=== PATIENT | female | born 1965 | race Caucasian/White ===

== ENCOUNTER 2016-10-03 17:31 | Emergency (ER) | payer OTHER ==
--- NOTE | 2016-10-03 18:46 | DIAGNOSTIC IMAGING REPORT ---
PROCEDURE: XR CHEST 2 VIEW INDICATION: CHEST PAIN, initial encounter TECHNIQUE: PA and lateral view. COMPARISON: None. FINDINGS: Lungs are clear. Cardiovascular structures are normal. Bony thorax is unremarkable. No significant interval change. IMPRESSION: 1. Negative chest.
--- NOTE | 2016-10-03 19:08 | ED CLINICAL REPORT ---
Clinical Report - Physicians/Mid Levels [facility] [address] [place] [address] 10/03/2016 17:32 Patient: SAMSON DÍAZ Time Seen: 18:13; initial patient contact, initial documentation, patient care assumed. Arrived- By private vehicle. Historian- patient. HISTORY OF PRESENT ILLNESS Chief Complaint: COUGH and "FLU". This started about 5 days ago and is now gone. The illness is described as moderate. The patient has had a cough, chest discomfort and chest pain. No fever, muscle aches, sore throat or nasal congestion or discharge. No sinus pressure or ear pain. (says cough is gone but chest is still hurting on R side, hurts in her ribs, hurts worse to breathe or cough, thinks her rib is broken, but denies any injury/trauma, states it feels the same as when she had a fx rib, but can't remember which side was fx). Additional history - No known contact with a sick individual. No recent travel. Similar symptoms previously: None. Recent medical care: Not recently seen/assessed. REVIEW OF SYSTEMS No headache, vomiting or diarrhea. All systems otherwise negative, except as recorded above. PAST HISTORY See nurses notes. PROBLEMS: Sprain. Bronchitis. Otitis Media. "heart burn". Anxiety disorder. Depression. Diabetes Mellitus. --18:02 Dionne Good, RRadamesN. ADDITIONAL SURGERIES: Hysterectomy. Tubal Ligation. --18:02 Dionne Good, RMarlene. SOCIAL HISTORY Former smoker. Not exposed to second-hand smoke at home. No alcohol use or drug use. No recent travel. Is a local resident. FAMILY HISTORY Negative. ADDITIONAL NOTES The nursing notes have been reviewed with agreement regarding the chief complaint, HPI, ROS, PMH and patient medications and allergies. PHYSICAL EXAM Vital Signs: 10/03/2016 17:58 BP: 158/69. HR: 85. RR: 18. O2 saturation: 100%. Temp: 98.6 F. Pain level now: 7/10. Have been reviewed as normal and appear to be correct. Appearance: Alert. No acute distress. Eyes: Pupils equal, round and reactive to light. Eyes normal inspection. ENT: Ears normal. Nose normal. Pharynx normal. Uvula midline. Neck: Normal inspection. Neck supple. CVS: Normal heart rate and rhythm. Heart sounds normal. Pulses normal. Respiratory: No respiratory distress. Breath sounds normal. Abdomen: Moderately obese. Back: Normal inspection. Skin: Skin warm and dry. Normal skin color. No rash. Normal skin turgor. Extremities: Extremities exhibit normal ROM. No lower extremity edema. Neuro: Oriented X 3. No motor deficit. No sensory deficit. LABS, X-RAYS, AND EKG Chest X-ray: Normal Chest X-Ray. (IMPRESSION: 1. Negative chest. Electronically Final signed by:Abner Graham MD 10/03/2016 6:46:04 PM). The X-rays were interpreted by the radiologist and contemporaneously by me. PROGRESS AND PROCEDURES Patient counseled in person regarding the patient's stable condition, test results and diagnosis. 18:55. Differential Diagnosis: Other possible considerations: chest wall pain, bronchitis, pneumonia, pneumo, pleurisy. Above considerations are based on history, physical exam and X-Ray data. Differential diagnosis was discussed with patient. Disposition: Discharged home in good and improved condition (19:08). Condition: good and stable. CLINICAL IMPRESSION Chest wall pain Costochondritis INSTRUCTIONS Warnings: GENERAL WARNINGS: Return or contact your physician immediately if your condition worsens or changes unexpectedly, if not improving as expected, or if other problems arise. Specifically return if problem worsens. Prescription Medications: Naproxen 500 mg tablets: take 1 orally every 12 hours as needed for pain. Dispense twenty (20). No refills. Follow-up: Follow up with your doctor in about three days as needed. Call for an appointment. Summary of care provided to patient. Understanding of the discharge instructions verbalized by patient. (Electronically signed by Barb Wallace A.R.N.P. 10/03/2016 19:20)
--- NOTE | 2016-10-03 19:09 | ED ORDER SUMMARY ---
..... Patient: SAMSON DÍAZ OrderSheet [facility] VisitID: [id number] [address] [place] [address] 51y, F Registration Date/Time: 10/03/2016 ORDER SHEET Weight: 104.3 kg (stated) Allergies: Morphine and Related GENERAL ORDERS: Chest 2V Urgent (18:19 10/03/2016 HBivens A.R.N.P.) (Ack 18:30 TBergley) (19:06 RFay) MEDICATION ORDERS: Toradol IM 60 mg (NOW) (18:19 10/03/2016 HBivens A.R.N.P.) (18:23 Vern R.N.) IV FLUIDS: ORDER SHEET NOTES: [Electronically signed by Víctor Ovalles R.N. (19:19 10/03/2016)] [Electronically signed by Barb Wallace.R.N.P. (19:20 10/03/2016)] [Electronically locked/signed by Víctor Ovalles R.N. (19:19 10/03/2016)]
--- NOTE | 2016-10-03 19:09 | ED NURSING NOTES ---
Clinical Report - Nurses [facility] [place] [address] [place] [address] 10/03/2016 17:32 Patient: SAMSON DÍAZ TRIAGE Triage time 17:58. Acuity: LEVEL 5. Chief Complaint: (right ribs area started hurting 5 days ago, had been coughing with flu symptoms). Alert. No acute distress. --18:06 Dionne Good R.N. 17:58 10/03/16. BP: 158/69. HR: 85. RR: 18. O2 saturation: 100%. Temp: 98.6 F. Pain level now: 03/08. --18:06 Dionne Good R.N. Weight: 104.3 kg stated. Height/Length: 63 inches Per Patient. BMI: 40.7. --18:02 Dionne Good R.N. Medications Lisinopril Oral. MetFORMIN HCl Oral. Wellbutrin Oral. --18:00 Dionne Good R.N. Prazosin HCl Oral. --18:00 Dionne Good R.N. SEROquel Oral. --18:01 Dionne Good R.N. Allergies Morphine and Related. --18:00 Dionne Good R.N. History Arrived by private vehicle. Historian: patient. Accompanied by (pt [facility] Primary physician (Dr. Mosquera). This occurred (5 days ago). SOCIAL HX: Former smoker, end date 07/2016. No alcohol use or drug use. FALL RISK ASSESSMENT: Fall risk assessment completed. No fall risk identified. FUNCTIONAL ASSESSMENT: Functional assessment: no impairments noted. --18:06 Dionne Good R.N. PROBLEMS: Sprain. Bronchitis. Otitis Media. "heart burn". Anxiety disorder. Depression. Diabetes Mellitus. --18:02 Dionne Good R.N. ADDITIONAL SURGERIES: Hysterectomy. Tubal Ligation. --18:02 Dionne Good R.N. Interventions ID and allergy band on patient. To room. --18:06 Dionne Good R.N. PHYSICAL ASSESSMENT 18:06 10/03/16. GENERAL / NEURO / PSYCH: Alert. Oriented X 4. SKIN: Skin is warm and dry. --18:06 Dionne Good R.N. NURSING PROGRESS NOTES 18:10/03/16. Patient identifiers checked. Call light placed in reach. Bed placed in lowest position. Patient ready for evaluation- chart flagged. --18:06 Dionne Good R.N. <<STRICKEN ENTRY-- 18:23 10/03/2016 Toradol (Ketorolac Tromethamine) IM 60 mg given. Allergies verified and confirmed 5 rights. --18:23 Dionne Good R.N. --END STRIKE>> Change to Details. --18:24 Dionne Good R.N. 18:23 10/03/2016 Toradol (Ketorolac Tromethamine) IM 60 mg given. Given in the left gluteus geoffrey. Allergies verified and confirmed 5 rights. --18:24 Dionne Good R.N. 19:15. The patient is calm and resting quietly. GENERAL / NEURO / PSYCH: Alert. Oriented X 4. RESPIRATORY: No respiratory distress. --19:18 Víctor Ovalles R.N. DISPOSITION / DISCHARGE Departure time: 19:17. Condition at departure: stable. No learning barriers present. Discharge instructions provided and reviewed with the patient. Reviewed medication(s) side effects, precautions, dosing and course information. Prescription(s) given to the patient. Patient verbalized understanding. Written instructions provided in Azeri. The patient was discharged home and accompanied by family. She left the Emergency Department ambulatory and via private vehicle. Family member driving. FALL RISK ASSESSMENT: Fall risk assessment completed. No fall risk identified. --19:18 Víctor Ovalles R.N. 19:14 10/03/16. BP: 153/83. HR: 74. RR: 17. O2 saturation: 96% on room air. Pain level now: 01/06. --19:18 Quivey, Víctor, R.N. Locked/Released at 10/03/2016 19:19 by Víctor Ovalles R.N.
--- NOTE | 2016-10-03 19:09 | ED NURSING NOTES ---
Clinical Report - Nurses [facility] [place] [address] [place] [address] 10/03/2016 17:32 Patient: SAMSON DÍAZ TRIAGE Triage time 17:58. Acuity: LEVEL 5. Chief Complaint: (right ribs area started hurting 5 days ago, had been coughing with flu symptoms). Alert. No acute distress. --18:06 Dionne Good R.N. 17:58 10/03/16. BP: 158/69. HR: 85. RR: 18. O2 saturation: 100%. Temp: 98.6 F. Pain level now: 03/08. --18:06 Dionne Good R.N. Weight: 104.3 kg stated. Height/Length: 63 inches Per Patient. BMI: 40.7. --18:02 Dionne Good R.N. Medications Lisinopril Oral. MetFORMIN HCl Oral. Wellbutrin Oral. --18:00 Dionne Good R.N. Prazosin HCl Oral. --18:00 Dionne Good R.N. SEROquel Oral. --18:01 Dionne Good R.N. Allergies Morphine and Related. --18:00 Dionne Good R.N. History Arrived by private vehicle. Historian: patient. Accompanied by ([facility] Primary physician (Dr. Mosquera). This occurred (5 days ago). SOCIAL HX: Former smoker, end date 07/2016. No alcohol use or drug use. FALL RISK ASSESSMENT: Fall risk assessment completed. No fall risk identified. FUNCTIONAL ASSESSMENT: Functional assessment: no impairments noted. --18:06 Dionne Good R.N. PROBLEMS: Sprain. Bronchitis. Otitis Media. "heart burn". Anxiety disorder. Depression. Diabetes Mellitus. --18:02 Dionne Good R.N. ADDITIONAL SURGERIES: Hysterectomy. Tubal Ligation. --18:02 Dionne Good R.N. Interventions ID and allergy band on patient. To room. --18:06 Dionne Good R.N. PHYSICAL ASSESSMENT 18:06 10/03/16. GENERAL / NEURO / PSYCH: Alert. Oriented X 4. SKIN: Skin is warm and dry. --18:06 Dionne Good R.N. NURSING PROGRESS NOTES 18:10/03/16. Patient identifiers checked. Call light placed in reach. Bed placed in lowest position. Patient ready for evaluation- chart flagged. --18:06 Dionne Good R.N. <<STRICKEN ENTRY-- 18:23 10/03/2016 Toradol (Ketorolac Tromethamine) IM 60 mg given. Allergies verified and confirmed 5 rights. --18:23 Dionne Good R.N. --END STRIKE>> Change to Details. --18:24 Dionne Good R.N. 18:23 10/03/2016 Toradol (Ketorolac Tromethamine) IM 60 mg given. Given in the left gluteus geoffrey. Allergies verified and confirmed 5 rights. --18:24 Dionne Good R.N. 19:15. The patient is calm and resting quietly. GENERAL / NEURO / PSYCH: Alert. Oriented X 4. RESPIRATORY: No respiratory distress. --19:18 Víctor Ovalles R.N. DISPOSITION / DISCHARGE Departure time: 19:17. Condition at departure: stable. No learning barriers present. Discharge instructions provided and reviewed with the patient. Reviewed medication(s) side effects, precautions, dosing and course information. Prescription(s) given to the patient. Patient verbalized understanding. Written instructions provided in Georgian. The patient was discharged home and accompanied by family. She left the Emergency Department ambulatory and via private vehicle. Family member driving. FALL RISK ASSESSMENT: Fall risk assessment completed. No fall risk identified. --19:18 Víctor Ovalles R.N. 19:14 10/03/16. BP: 153/83. HR: 74. RR: 17. O2 saturation: 96% on room air. Pain level now: 01/06. --19:18 Quivey, Víctor, R.N. Locked/Released at 10/03/2016 19:19 by Víctor Ovalles R.N.
--- NOTE | 2016-10-03 19:09 | ED ORDER SUMMARY ---
..... Patient: SAMSON DÍAZ OrderSheet [facility] VisitID: [id number] [address] [place] [address] 51y, F Registration Date/Time: 10/03/2016 ORDER SHEET Weight: 104.3 kg (stated) Allergies: Morphine and Related GENERAL ORDERS: Chest 2V Urgent (18:19 10/03/2016 HBivens A.R.N.P.) (Ack 18:30 TBergley) (19:06 RFay) MEDICATION ORDERS: Toradol IM 60 mg (NOW) (18:19 10/03/2016 HBivens A.R.N.P.) (18:23 Vern R.N.) IV FLUIDS: ORDER SHEET NOTES: [Electronically signed by Víctor Ovalles R.N. (19:19 10/03/2016)] [Electronically signed by Barb Wallace.R.N.P. (19:20 10/03/2016)] [Electronically locked/signed by Víctor Ovalles R.N. (19:19 10/03/2016)]
--- NOTE | 2016-10-03 19:20 | ED MAR SUMMARY ---
..... Medication Administration Record [facility] [address] [place] [address] Patient: SAMSON DÍAZ Visit ID: [id number] 51y, F Weight: 104.3 kg Height/Length: 63 in BMI: 40.7 ALLERGIES: Morphine and Related Given 18:23 10/03/2016 Dionne Good RRadamesNRadames Medication Administered: TORADOL [IM] (KETOROLAC TROMETHAMINE), Dose: 60 mg IM. Medication Ordered: Toradol IM 60 mg (NOW).
--- NOTE | 2016-10-03 19:20 | ED DISCHARGE INSTRUCTIONS ---
Patient: SAMSON DÍAZ General Instructions [facility] VisitID: [id number] [place] [address] 51y, [place] Registration Date/Time: 10/03/2016 Chest wall pain Costochondritis INSTRUCTIONS Warnings: GENERAL WARNINGS: Return or contact your physician immediately if your condition worsens or changes unexpectedly, if not improving as expected, or if other problems arise. Specifically return if problem worsens. Prescription Medications: Naproxen 500 mg tablets: take 1 orally every 12 hours as needed for pain. Dispense twenty (20). No refills. Follow-up: Follow up with your doctor in about three days as needed. Call for an appointment. Summary of care provided to patient. Understanding of the discharge instructions verbalized by patient. ADDITIONAL INFORMATION Chest Wall Pain: Costochondritis The chest pain that you have had today is caused by Costochondritis. This condition is due to an inflammation of the cartilage joining the ribs to the breastbone. It is not caused by heart or lung problems. Although the exact cause for costochondritis is not known, it often occurs during times of emotional stress. It can be painful, but it is not dangerous. It usually disappears within one to two weeks, but may recur. Rarely, a more serious condition may cause symptoms similar to costochondritis; therefore, watch for the warning signs listed below. Home Care: If you feel that emotional stress is a cause of your condition, try to identify sources of that stress. It may not be obvious! Learn ways to deal with the stress in your life such as regular exercise, muscle relaxation, meditation, or simply taking time out for yourself. For more information about this, consult your doctor or go to a local bookstore and review books and tapes available on the subject of stress reduction. You may use acetaminophen (Tylenol) or ibuprofen (Motrin, Advil) to control pain, unless another pain medicine was prescribed. [ NOTE: If you have liver disease or ever had a stomach ulcer, talk with your doctor before using these medicines.] The use of heat (hot wet compress or heating pad) with or without local analgesic creams (Deep Heat Rub, Lavelle Burns) will be helpful to reduce pain. Follow Up with your doctor as directed or sooner if you do not start to improve within the next two days. Get Prompt Medical Attention if any of the following occur: A change in the type of pain: if it feels different, becomes more severe, lasts longer, or spreads into your shoulder, arm, neck, jaw or back Shortness of breath or increased pain with breathing Weakness, dizziness, or fainting Cough with dark colored sputum (phlegm) or blood Abdominal pain Dark red or black stools Fever of 100.4F (38C) or higher, or as directed by your healthcare provider Chest Wall Pain: Costochondritis The chest pain that you have had today is caused by Costochondritis. This condition is due to an inflammation of the cartilage joining the ribs to the breastbone. It is not caused by heart or lung problems. Although the exact cause for costochondritis is not known, it often occurs during times of emotional stress. It can be painful, but it is not dangerous. It usually disappears within one to two weeks, but may recur. Rarely, a more serious condition may cause symptoms similar to costochondritis; therefore, watch for the warning signs listed below. Home Care: If you feel that emotional stress is a cause of your condition, try to identify sources of that stress. It may not be obvious! Learn ways to deal with the stress in your life such as regular exercise, muscle relaxation, meditation, or simply taking time out for yourself. For more information about this, consult your doctor or go to a local bookstore and review books and tapes available on the subject of stress reduction. You may use acetaminophen (Tylenol) or ibuprofen (Motrin, Advil) to control pain, unless another pain medicine was prescribed. [ NOTE: If you have liver disease or ever had a stomach ulcer, talk with your doctor before using these medicines.] The use of heat (hot wet compress or heating pad) with or without local analgesic creams (Deep Heat Rub, Lavelle Burns) will be helpful to reduce pain. Follow Up with your doctor as directed or sooner if you do not start to improve within the next two days. Get Prompt Medical Attention if any of the following occur: A change in the type of pain: if it feels different, becomes more severe, lasts longer, or spreads into your shoulder, arm, neck, jaw or back Shortness of breath or increased pain with breathing Weakness, dizziness, or fainting Cough with dark colored sputum (phlegm) or blood Abdominal pain Dark red or black stools Fever of 100.4F (38C) or higher, or as directed by your healthcare provider Naproxen Sodium Oral tablet What is this medicine? NAPROXEN (na PROX en) is a non-steroidal anti-inflammatory drug (NSAID). It is used to reduce swelling and to treat pain. This medicine may be used for dental pain, headache, or painful monthly periods. It is also used for painful joint and muscular problems such as arthritis, tendinitis, bursitis, and gout. How should I use this medicine? Take this medicine by mouth with a glass of water. Follow the directions on the prescription label. Take it with food if your stomach gets upset. Try to not lie down for at least 10 minutes after you take it. Take your medicine at regular intervals. Do not take your medicine more often than directed. Long-term, continuous use may increase the risk of heart attack or stroke. A special MedGuide will be given to you by the pharmacist with each prescription and refill. Be sure to read this information carefully each time. Talk to your group reservations coordinator regarding the use of this medicine in children. Special care may be needed. What side effects may I notice from receiving this medicine? Side effects that you should report to your doctor or health personal care service provider as soon as possible: black or bloody stools, blood in the urine or vomit blurred vision chest pain difficulty breathing or wheezing nausea or vomiting severe stomach pain skin rash, skin redness, blistering or peeling skin, hives, or itching slurred speech or weakness on one side of the body swelling of eyelids, throat, lips unexplained weight gain or swelling unusually weak or tired yellowing of eyes or skin Side effects that usually do not require medical attention (report to your doctor or health personal care service provider if they continue or are bothersome): constipation headache heartburn What may interact with this medicine? alcohol aspirin cidofovir diuretics lithium methotrexate other drugs for inflammation like ketorolac or prednisone pemetrexed probenecid warfarin What if I miss a dose? If you miss a dose, take it as soon as you can. If it is almost time for your next dose, take only that dose. Do not take double or extra doses. Where should I keep my medicine? Keep out of the reach of children. Store at room temperature between 15 and 30 degrees C (59 and 86 degrees F). Keep container tightly closed. Throw away any unused medicine after the expiration date. What should I tell my health care provider before I take this medicine? They need to know if you have any of these conditions: asthma cigarette smoker drink more than 3 alcohol containing drinks a day heart disease or circulation problems such as heart failure or leg edema (fluid retention) high blood pressure kidney disease liver disease stomach bleeding or ulcers an unusual or allergic reaction to naproxen, aspirin, other NSAIDs, other medicines, foods, dyes, or preservatives or trying to get breast-feeding What should I watch for while using this medicine? Tell your doctor or health personal care service provider if your pain does not get better. Talk to your doctor before taking another medicine for pain. Do not treat yourself. This medicine does not prevent heart attack or stroke. In fact, this medicine may increase the chance of a heart attack or stroke. The chance may increase with longer use of this medicine and in people who have heart disease. If you take aspirin to prevent heart attack or stroke, talk with your doctor or health personal care service provider. Do not take other medicines that contain aspirin, ibuprofen, or naproxen with this medicine. Side effects such as stomach upset, nausea, or ulcers may be more likely to occur. Many medicines available without a prescription should not be taken with this medicine. This medicine can cause ulcers and bleeding in the stomach and intestines at any time during treatment. Do not smoke cigarettes or drink alcohol. These increase irritation to your stomach and can make it more susceptible to damage from this medicine. Ulcers and bleeding can happen without warning symptoms and can cause . You may get drowsy or dizzy. Do not drive, use machinery, or do anything that needs mental alertness until you know how this medicine affects you. Do not stand or sit up quickly, especially if you are an older patient. This reduces the risk of dizzy or fainting spells. This medicine can cause you to bleed more easily. Try to avoid damage to your teeth and gums when you brush or floss your teeth. You have been given the following additional information: Chest Wall Pain, Costochondritis Chest Wall Pain, Costochondritis Naproxen Sodium Oral tablet (Electronically signed by Barb Wallace A.R.N.P. 10/03/2016 19:20)
--- NOTE | 2016-10-03 19:20 | ED DISCHARGE INSTRUCTIONS ---
Patient: SAMSON DÍAZ General Instructions [facility] VisitID: [id number] [place] [address] 51y, F Registration Date/Time: 10/03/2016 Chest wall pain Costochondritis INSTRUCTIONS Warnings: GENERAL WARNINGS: Return or contact your physician immediately if your condition worsens or changes unexpectedly, if not improving as expected, or if other problems arise. Specifically return if problem worsens. Prescription Medications: Naproxen 500 mg tablets: take 1 orally every 12 hours as needed for pain. Dispense twenty (20). No refills. Follow-up: Follow up with your doctor in about three days as needed. Call for an appointment. Summary of care provided to patient. Understanding of the discharge instructions verbalized by patient. ADDITIONAL INFORMATION Chest Wall Pain: Costochondritis The chest pain that you have had today is caused by Costochondritis. This condition is due to an inflammation of the cartilage joining the ribs to the breastbone. It is not caused by heart or lung problems. Although the exact cause for costochondritis is not known, it often occurs during times of emotional stress. It can be painful, but it is not dangerous. It usually disappears within one to two weeks, but may recur. Rarely, a more serious condition may cause symptoms similar to costochondritis; therefore, watch for the warning signs listed below. Home Care: If you feel that emotional stress is a cause of your condition, try to identify sources of that stress. It may not be obvious! Learn ways to deal with the stress in your life such as regular exercise, muscle relaxation, meditation, or simply taking time out for yourself. For more information about this, consult your doctor or go to a local bookstore and review books and tapes available on the subject of stress reduction. You may use acetaminophen (Tylenol) or ibuprofen (Motrin, Advil) to control pain, unless another pain medicine was prescribed. [ NOTE: If you have liver disease or ever had a stomach ulcer, talk with your doctor before using these medicines.] The use of heat (hot wet compress or heating pad) with or without local analgesic creams (Deep Heat Rub, Lavelle Burns) will be helpful to reduce pain. Follow Up with your doctor as directed or sooner if you do not start to improve within the next two days. Get Prompt Medical Attention if any of the following occur: A change in the type of pain: if it feels different, becomes more severe, lasts longer, or spreads into your shoulder, arm, neck, jaw or back Shortness of breath or increased pain with breathing Weakness, dizziness, or fainting Cough with dark colored sputum (phlegm) or blood Abdominal pain Dark red or black stools Fever of 100.4F (38C) or higher, or as directed by your healthcare provider Chest Wall Pain: Costochondritis The chest pain that you have had today is caused by Costochondritis. This condition is due to an inflammation of the cartilage joining the ribs to the breastbone. It is not caused by heart or lung problems. Although the exact cause for costochondritis is not known, it often occurs during times of emotional stress. It can be painful, but it is not dangerous. It usually disappears within one to two weeks, but may recur. Rarely, a more serious condition may cause symptoms similar to costochondritis; therefore, watch for the warning signs listed below. Home Care: If you feel that emotional stress is a cause of your condition, try to identify sources of that stress. It may not be obvious! Learn ways to deal with the stress in your life such as regular exercise, muscle relaxation, meditation, or simply taking time out for yourself. For more information about this, consult your doctor or go to a local bookstore and review books and tapes available on the subject of stress reduction. You may use acetaminophen (Tylenol) or ibuprofen (Motrin, Advil) to control pain, unless another pain medicine was prescribed. [ NOTE: If you have liver disease or ever had a stomach ulcer, talk with your doctor before using these medicines.] The use of heat (hot wet compress or heating pad) with or without local analgesic creams (Deep Heat Rub, Lavelle Burns) will be helpful to reduce pain. Follow Up with your doctor as directed or sooner if you do not start to improve within the next two days. Get Prompt Medical Attention if any of the following occur: A change in the type of pain: if it feels different, becomes more severe, lasts longer, or spreads into your shoulder, arm, neck, jaw or back Shortness of breath or increased pain with breathing Weakness, dizziness, or fainting Cough with dark colored sputum (phlegm) or blood Abdominal pain Dark red or black stools Fever of 100.4F (38C) or higher, or as directed by your healthcare provider Naproxen Sodium Oral tablet What is this medicine? NAPROXEN (na PROX en) is a non-steroidal anti-inflammatory drug (NSAID). It is used to reduce swelling and to treat pain. This medicine may be used for dental pain, headache, or painful monthly periods. It is also used for painful joint and muscular problems such as arthritis, tendinitis, bursitis, and gout. How should I use this medicine? Take this medicine by mouth with a glass of water. Follow the directions on the prescription label. Take it with food if your stomach gets upset. Try to not lie down for at least 10 minutes after you take it. Take your medicine at regular intervals. Do not take your medicine more often than directed. Long-term, continuous use may increase the risk of heart attack or stroke. A special MedGuide will be given to you by the pharmacist with each prescription and refill. Be sure to read this information carefully each time. Talk to your call center analyst regarding the use of this medicine in children. Special care may be needed. What side effects may I notice from receiving this medicine? Side effects that you should report to your doctor or health memory care program director as soon as possible: black or bloody stools, blood in the urine or vomit blurred vision chest pain difficulty breathing or wheezing nausea or vomiting severe stomach pain skin rash, skin redness, blistering or peeling skin, hives, or itching slurred speech or weakness on one side of the body swelling of eyelids, throat, lips unexplained weight gain or swelling unusually weak or tired yellowing of eyes or skin Side effects that usually do not require medical attention (report to your doctor or health memory care program director if they continue or are bothersome): constipation headache heartburn What may interact with this medicine? alcohol aspirin cidofovir diuretics lithium methotrexate other drugs for inflammation like ketorolac or prednisone pemetrexed probenecid warfarin What if I miss a dose? If you miss a dose, take it as soon as you can. If it is almost time for your next dose, take only that dose. Do not take double or extra doses. Where should I keep my medicine? Keep out of the reach of children. Store at room temperature between 15 and 30 degrees C (59 and 86 degrees F). Keep container tightly closed. Throw away any unused medicine after the expiration date. What should I tell my health care provider before I take this medicine? They need to know if you have any of these conditions: asthma cigarette smoker drink more than 3 alcohol containing drinks a day heart disease or circulation problems such as heart failure or leg edema (fluid retention) high blood pressure kidney disease liver disease stomach bleeding or ulcers an unusual or allergic reaction to naproxen, aspirin, other NSAIDs, other medicines, foods, dyes, or preservatives or trying to get breast-feeding What should I watch for while using this medicine? Tell your doctor or health memory care program director if your pain does not get better. Talk to your doctor before taking another medicine for pain. Do not treat yourself. This medicine does not prevent heart attack or stroke. In fact, this medicine may increase the chance of a heart attack or stroke. The chance may increase with longer use of this medicine and in people who have heart disease. If you take aspirin to prevent heart attack or stroke, talk with your doctor or health memory care program director. Do not take other medicines that contain aspirin, ibuprofen, or naproxen with this medicine. Side effects such as stomach upset, nausea, or ulcers may be more likely to occur. Many medicines available without a prescription should not be taken with this medicine. This medicine can cause ulcers and bleeding in the stomach and intestines at any time during treatment. Do not smoke cigarettes or drink alcohol. These increase irritation to your stomach and can make it more susceptible to damage from this medicine. Ulcers and bleeding can happen without warning symptoms and can cause . You may get drowsy or dizzy. Do not drive, use machinery, or do anything that needs mental alertness until you know how this medicine affects you. Do not stand or sit up quickly, especially if you are an older patient. This reduces the risk of dizzy or fainting spells. This medicine can cause you to bleed more easily. Try to avoid damage to your teeth and gums when you brush or floss your teeth. You have been given the following additional information: Chest Wall Pain, Costochondritis Chest Wall Pain, Costochondritis Naproxen Sodium Oral tablet (Electronically signed by Barb Wallace A.R.N.P. 10/03/2016 19:20)
--- NOTE | 2016-10-03 19:20 | ED MED RECONCILIATION SUMMARY ---
Patient: SAMSON DÍAZ Medication Reconciliation Report [facility] VisitID: [id number] [address] [place] [address] 51y, F Registration Date/Time: 10/03/2016 Weight: 104.3 kg Height/Length: 63 in. BMI: 40.7 ALLERGIES: Morphine and Related The patient's Home Medications are listed below: THE FOLLOWING MEDICATIONS NEED TO BE RECONCILED: Lisinopril Oral MetFORMIN HCl Oral Prazosin HCl Oral SEROquel Oral Wellbutrin Oral The source(s) of the original Home Medication information: Not obtained. The following Medications were given to the patient in the Emergency Department: Toradol [IM] IM 60 mg, administered: 10/03/2016 6:23:00 PM The following Medications were prescribed to the patient: Naproxen 500 mg tablets: take 1 orally every 12 hours as needed for pain. Dispense twenty (20). No refills. -- Barb Wallace A.R.NRadamesP.
--- NOTE | 2016-10-03 19:20 | ED MED RECONCILIATION SUMMARY ---
Patient: SAMSON DÍAZ Medication Reconciliation Report [facility] VisitID: [id number] [address] [place] [address] 51y, F Registration Date/Time: 10/03/2016 Weight: 104.3 kg Height/Length: 63 in. BMI: 40.7 ALLERGIES: Morphine and Related The patient's Home Medications are listed below: THE FOLLOWING MEDICATIONS NEED TO BE RECONCILED: Lisinopril Oral MetFORMIN HCl Oral Prazosin HCl Oral SEROquel Oral Wellbutrin Oral The source(s) of the original Home Medication information: Not obtained. The following Medications were given to the patient in the Emergency Department: Toradol [IM] IM 60 mg, administered: 10/03/2016 6:23:00 PM The following Medications were prescribed to the patient: Naproxen 500 mg tablets: take 1 orally every 12 hours as needed for pain. Dispense twenty (20). No refills. -- Barb Wallace A.R.NRadamesP.
--- NOTE | 2016-10-03 19:20 | ED MAR SUMMARY ---
..... Medication Administration Record [facility] [address] [place] [address] Patient: SAMSON DÍAZ Visit ID: [id number] 51y, F Weight: 104.3 kg Height/Length: 63 in BMI: 40.7 ALLERGIES: Morphine and Related Given 18:23 10/03/2016 Dionne Good RRadamesNRadames Medication Administered: TORADOL [IM] (KETOROLAC TROMETHAMINE), Dose: 60 mg IM. Medication Ordered: Toradol IM 60 mg (NOW).
== END 2016-10-03 19:17 | disposition home or self-care (01) ==
LOC: ED SRH 17:31
DX: R07.89 Other chest pain (principal); M94.0 Chondrocostal junction syndrome [Tietze]; E11.9 Type 2 diabetes mellitus without complications; I10 Essential (primary) hypertension; Z79.84 Long term (current) use of oral hypoglycemic drugs; Z79.899 Other long term (current) drug therapy; Z87.891 Personal history of nicotine dependence

== ENCOUNTER 2016-10-31 18:47 | Emergency (ER) | payer OTHER ==
--- NOTE | 2016-10-31 20:06 | DIAGNOSTIC IMAGING REPORT ---
PROCEDURE: XR CHEST 1 VIEW INDICATION: CHEST PAIN, initial encounter TECHNIQUE: Portable AP view 07:25 p.m. COMPARISON: Chest x-ray 10/03/2016 FINDINGS: Lungs are clear. Heart and mediastinum are normal. Thorax is normal. No significant interval change. IMPRESSION: 1. Negative chest.
--- NOTE | 2016-10-31 22:23 | ED ORDER SUMMARY ---
..... Patient: SAMSON DÍAZ OrderSheet [facility] VisitID: [id number] [place] [address] 51y, F Registration Date/Time: 10/31/2016 ORDER SHEET Weight: 104.3 kg Allergies: Morphine and Related GENERAL ORDERS: EKG - ER Stat (19:10/31/2016 DBeyer R.N. per protocol) (19:06 TBergley) Chest 1V Urgent (19:10/31/2016 Edith ROBBINS) (Ack 19:29 CHagerty ER Business Reporter) (20:29 CHagerty ER Business Reporter) Service Station Equipment Mechanic (Continuous) (:10/31/2016 Edith ROBBINS) (Ack 19:29 CHagerty ER Business Reporter) (2:26 JQuivey R.N.) Cardiac Panel Stat (:10/31/2016 Edith ROBBINS) (Ack 19:29 CHagerty ER Business Reporter) (2:28 JQuivey R.N.) BNP Urgent (19:10/31/2016 Edith ROBBINS) (Ack 19:29 CHagerty ER Business Reporter) (2:28 JQuivey R.N.) D-Dimer Urgent (19:10/31/2016 Edith ROBBINS) (Ack 19:29 CHagerty ER Business Reporter) (2:28 JQuivey R.N.) Oxygen (2 L/min) (NC) (19:10/31/2016 Edith ROBBINS) (Ack 19:29 CHagerty ER Business Reporter) (2:28 JQuivey R.N.) Pulse oximeter (19:10/31/2016 Edith ROBBINS) (Ack 19:29 MonkeyFinderty ER Business Reporter) (2:27 JQuivey R.N.) EKG - ER Stat (:10/31/2016 Edith ROBBINS) (Cancelled: Duplicate Order19:29 CHagerty ER Business Reporter) MEDICATION ORDERS: Aspirin PO 325 mg (NOW) (19:10/31/2016 Edith ROBBINS) (20:07 DBeyer R.N.) IV FLUIDS: IV Saline Lock (19:10/31/2016 Edith ROBBINS) (20:02 DBeyer R.N.) Dilaudid IV 1 mg (NOW) (19:19 10/31/2016 Edith ROBBINS) (20:07 DBeyer R.N.) Dilaudid IV 1 mg (HIGH ALERT MEDICATION, NOW) (22:19 10/31/2016 Edith ROBBINS) (22:39 DBeyer R.N.) ORDER SHEET NOTES: [Electronically signed by Víctor Ovalles R.N. (02:11/01/2016)] [Electronically signed by Joel Quiroz MD (15:01 11/02/2016)] [Electronically locked/signed by Víctor Ovalles R.N. (:11/01/2016)]
--- NOTE | 2016-10-31 22:23 | ED CLINICAL REPORT ---
Clinical Report - Physicians/Mid Levels [facility] [address] [place] [address] 10/31/2016 18:47 Patient: SAMSON DÍAZ Time Seen: 19:08. Historian- patient. HISTORY OF PRESENT ILLNESS Chief Complaint: CHEST PAIN. This started yesterday AM and is still present. It was gradual in onset and has been constant. At its maximum, severity described as 9 / 10. When seen in the E.D., severity described as 9 / 10. Modifying factors- (Moving arm and breathing, and palpation.). It is described as sharp and it is described as located in the left chest area. No nausea, difficulty breathing or diaphoresis. The patient has had additional chest pain around the L back to shoulder blade. (No truma, no exercise. She awakened with this discomfort. No recent URI). Similar symptoms previously: None. REVIEW OF SYSTEMS No fever, chills, cough, pedal edema or calf pain. No sore throat, blurred vision, abdominal pain, black stools or difficulty with urination. No skin rash, joint pain or bloody stools. PAST HISTORY PCP: Dr Mosquera Seamde PROBLEMS: Chest Wall Pain. Costochondritis. Sprain. Bronchitis. Otitis Media. Immunizations. "heart burn". Anxiety disorder. Depression. --19:00 Julian Schaffer, R.N. ADDITIONAL SURGERIES: Hysterectomy. Tubal Ligation. No history of pulmonary embolism. Medications: Lexapro Oral. Lisinopril Oral. MetFORMIN HCl Oral. Prazosin HCl Oral. SEROquel Oral. Wellbutrin Oral. Allergies: Morphine and Related. SOCIAL HISTORY Former smoker, end date 06/2016. ADDITIONAL NOTES The nursing notes have been reviewed. PHYSICAL EXAM Vital Signs: 10/31/2016 22:39 BP: 127/79. HR: 90. RR: 18. O2 saturation: 96%. Temp: 98.1 F. 10/31/2016 22:00 BP: 148/88. O2 saturation: 96%. 10/31/2016 21:18 BP: 167/85. HR: 71. O2 saturation: 98%. 10/31/2016 18:57 BP: 159/108. HR: 85. RR: 18. O2 saturation: 96%. Temp: 98.3 F. Appearance: Alert. Patient in moderate distress. Distress appears due to anxiety. Eyes: Eyes normal inspection. ENT: Pharynx normal. Neck: Normal inspection. No lymphadenopathy or thyromegaly. CVS: Normal heart rate and rhythm. Heart sounds normal. Respiratory: No respiratory distress. No respiratory distress. Chest pain reproducible with palpation of the lateral chest wall and ribs and with deep breathing. Breath sounds normal. No retractions or accessory muscle use. Abdomen: Soft and nontender. Back: Normal external inspection. Skin: Skin warm. Normal skin color. Extremities: Extremities exhibit normal ROM. No lower extremity edema. Neuro: No alteration in mental status. LABS, X-RAYS, AND EKG EKG: No acute process. No acute ischemia. Decreased QRS voltage. The study has been independently viewed by me. Chest X-ray: (PROCEDURE: XR CHEST 1 VIEW INDICATION: CHEST PAIN, initial encounter TECHNIQUE: Portable AP view 07:25 p.m. COMPARISON: Chest x-ray 10/03/2016 FINDINGS: Lungs are clear. Heart and mediastinum are normal. Thorax is normal. No significant interval change. IMPRESSION: 1. Negative chest. Electronically Final signed by:Abner Graham MD 10/31/2016 8:06:35 PM). The X-rays were interpreted by the radiologist and contemporaneously by me. Laboratory Tests: CBC w Diff: (BASSEM: 10/31/2016 20:00) ( MsgRcvd 10/31/2016 20:45) Final results Test Result Flag Units (Reference) WHITE BLOOD COUNT 8.3 K/uL (4.5-11.5) RED BLOOD COUNT 4.50 M/uL (4.00-5.20) HEMOGLOBIN 13.2 gm/dL (12.0-16.0) HEMATOCRIT 39.4 % (36.0-46.0) MEAN CELL VOLUME 88 fL (80-100) MEAN CORPUSCULAR HGB 29 pg (26-34) MEAN CORPUSCULAR HGB CONC 33 g/dL (31-37) RED CELL DISTRIBUTION WIDTH 13.6 % (11.6-14.8) PLATELET COUNT 285 K/uL (150-400) NEUTROPHIL % 53.0 % (50-75) LYMPH % 38.0 % (25-40) MONO % 6.3 % (3-14) EOSINOPHIL % 2.2 % (0-4) BASOPHIL % 0.5 % (0-2) [id number]: (BASSEM: 10/31/2016 20:00) ( [facility] 10/31/2016 21:00) Final results Test Result Flag Units (Reference) D-DIMER QUANTITATIVE 0.27 ug/mLFEU (0.27-0.52) The primary value of this quantitative assay relates toits negative predictive value (i.e. exclusion) of pulmonaryembolism/deep vein thrombosis/DIC.Elevated levels of d-dimer may also occur with:, age, cancer, inflammation, liver disease,post-op, infection, hematoma, coronary disease, peripheralarteriopathy, bleeding disorders and thrombolytic treatment.Results should be correlated with other clinical andradiological data.Testing Methodology: Latex Immunoassay BNP: (BASSEM: 10/31/2016 20:00) ( [facility] 10/31/2016 20:46) Final results Test Result Flag Units (Reference) B-TYPE NATRIURETIC PEPTIDE 14.6 pg/ml (5-100) CHEM 13 PANEL: (BASSEM: 10/31/2016 20:00) ( [facility] 10/31/2016 20:32) Final results Test Result Flag Units (Reference) GLUCOSE 219 H mg/dL (70-110) BUN 11 mg/dL (7-18) CREATININE 1.0 mg/dL (0.6-1.3) Estimated GFR >60 mL/min Estimated GFR- >60 mL/min Note: Persistent reduction over 3 months in eGFR<60 mL/min/1.73 m2 defines CKD. Patients with eGFR values>=60 mL/min/1.73 m2 may also have CKD if evidence ofpersistent proteinuria. Additional information may be foundat www.kidney.org. SODIUM 140 mmol/L (136-145) POTASSIUM 4.1 mmol/L (3.5-5.1) CHLORIDE 103 mmol/L (98-107) CARBON DIOXIDE 27 mmol/L (21-32) CALCIUM 9.3 mg/dL (8.5-10.1) TOTAL PROTEIN 7.5 g/dL (6.4-8.2) ALBUMIN 3.8 g/dL (3.3-5.0) BILIRUBIN, TOTAL 0.3 mg/dL (0.0-1.0) ALKALINE PHOSPHATASE 131 H U/L (46-116) AST (SGOT) 12 L U/L (15-37) ALT (SGPT) 43 U/L (12-78) MAGNESIUM 1.9 mg/dL (1.8-2.4) CPK 150 U/L (24-260) TROPONIN I <0.05 L ng/mL (0.00-1.5) TROPONIN REFERENCE RANGE:<0.1 NEGATIVE0.1-1.5 INDETERMINANT>1.5 POSITIVE . PROGRESS AND PROCEDURES Course of Care: Cardiac markers and EKG are negative after more than 24 hours of continuous symptoms. Very unlikely ACS History, exam and CXR make pneumothorax, and thoracic aortic dissection very unlikely, History is against esophageal rupture, and Ddimer against PE. Chest wall pain is the best and most likely fit. Disposition: Discharged. Condition: stable. CLINICAL IMPRESSION Chest wall pain INSTRUCTIONS Do not work for two days. (IF YOU CAN TOLERATE IBUPROFEN 200 MG 4 TIMES A DAY FOR 5 DAYS. PAIN MEDICINE IMMEDIATE REHCECK IF WORSE). Prescription Medications: Oxycodone/APAP 5 mg/325 mg: take 1 tablet orally every 4 hours as needed for pain. Dispense fifteen (15). No refill. Follow-up: Follow up with your doctor in five days. Call for an appointment. Understanding of the discharge instructions verbalized by patient and family. (Electronically signed by Joel Quiroz MD 11/02/2016 15:01)
--- NOTE | 2016-10-31 22:23 | ED NURSING NOTES ---
Clinical Report - Nurses [facility] [place] [address] [place] [address] 10/31/2016 18:47 [id number] Triage time 19:00 Oct 31 2016. --19:02 Julian Schaffer R.N. 18:57 10/31/16. BP: 159/108. HR: 85. RR: 18. O2 saturation: 96%. Temp: 98.3 F. Pain level now 8/10. --19:02 Julian Schaffer R.N. Acuity: LEVEL 3. --19:02 Julian Schaffer R.N. Chief Complaint: CHEST PAIN. --02:29 Víctor Ovalles R.N. Weight: 104.3 kg. Height/Length: 62 inches. BMI: 42.1. --19:02 Julian Schaffer R.N. Medications Lisinopril Oral. MetFORMIN HCl Oral. Prazosin HCl Oral. SEROquel Oral. Wellbutrin Oral. --19:00 Julian Schaffer R.N. Lexapro Oral. --19:01 Julian Schaffer R.N. Allergies Morphine and Related. --19:00 Julian Schaffer R.N. History Arrived by private vehicle. ( Pt reports sudden onset CP that started yesterday no injury noted no cardiac hx). The patient has had difficulty breathing. Reports experiencing sweating episodes. SOCIAL HX: Smoker- current status unknown. No alcohol use or drug use. --19:02 Julian Schaffer R.N. PROBLEMS: Chest Wall Pain. Costochondritis. Sprain. Bronchitis. Otitis Media. Immunizations. "heart burn". Anxiety disorder. Depression. --19:00 Julian Schaffer R.N. ADDITIONAL SURGERIES: Hysterectomy. Tubal Ligation. --19:01 Julian Schaffer R.N. Interventions ID and allergy band on patient. To treatment room. --19:02 Julian Schaffer R.N. PHYSICAL ASSESSMENT GENERAL / NEURO / PSYCH: Alert. Oriented X 4. Appears in pain. RESPIRATORY: Respirations not labored. Chest nontender. Breath sounds within normal limits. CVS: Heart sounds within normal limits. Pulses within normal limits. Capillary refill less than 2 seconds. GI / : Abdomen soft and nontender. EXTREMITIES: No lower extremity edema. SKIN: Skin is warm and dry. --19:02 Julian Schaffer R.N. NURSING PROGRESS NOTES Monitoring of patient in place. Patient gowned. Call light placed in reach. Side rails up x 1. Bed placed in lowest position. --19:02 Julian Schaffer R.N. EKG time: (1904). EKG was ordered, performed by a tech and shown to the ED physician. --19:05 Aurora Scott 20:02 10/31/2016 Site #1 started prior to arrival by EMS via IV in the right upper arm with an 20g angiocath, with aseptic technique and good blood return; one attempt. Blood drawn: rainbow set. Labeled in the presence of the patient. Saline lock flushed with saline. --20:02 Julian Schaffer R.N. 20:07 10/31/2016 Dilaudid (HYDROmorphone HCl PF) IVP 1 mg given over 2 minute(s) via site #1. Allergies verified, confirmed 5 rights and sedative warning given to the patient. IV patency established. IV site checked: no pain, redness, or swelling. IV flushed thoroughly pre- and post-medication administration. IVP given by RN. --20:07 Julian Schaffer R.N. 20:07 10/31/2016 Aspirin PO 325 mg given. Allergies verified and confirmed 5 rights. --20:07 Julian Schaffer R.N. 21:18 10/31/16. BP: 167/85. HR: 71. O2 saturation: 98%. --21:18 Julian Schaffer R.N. 22:24 10/31/2016 Dilaudid (HYDROmorphone HCl PF) IVP 1 mg given over 2 minute(s) via site #1. Allergies verified, confirmed 5 rights and sedative warning given. IV patency established. IV site checked: no pain, redness, or swelling. IV flushed thoroughly pre- and post-medication administration. IVP given by RN. --22:39 Julian Schaffer R.N. <<STRICKEN ENTRY-- 22:39 10/31/2016 Dilaudid (HYDROmorphone HCl PF) IVP 1 mg given over 2 minute(s) via site #1. Allergies verified, confirmed 5 rights and sedative warning given. IV patency established. IV site checked: no pain, redness, or swelling. IV flushed thoroughly pre- and post-medication administration. IVP given by RN. --22:39 Jluian Schaffer R.N. --END STRIKE>> Change to Details. --22:39 Julian Schaffer R.N. DISPOSITION / DISCHARGE 22:00 10/31/16. BP: 148/88. O2 saturation: 96%. --22:38 Julian Schaffer R.N. 22:39 10/31/16. BP: 127/79. HR: 90. RR: 18. O2 saturation: 96%. Temp: 98.1 F. Pain level now 5/10. --22:40 Julian Schaffer R.N. Departure time: 2233. Condition at departure: improved and stable. No learning barriers present. Discharge instructions provided and reviewed with the patient. Reviewed warnings. Reviewed medication(s). Treatments reviewed. Reviewed referrals. Family verbalized understanding. Written instructions provided in Nepali. The patient was discharged by the physician. She was discharged home and accompanied by family. She left the Emergency Department in a wheelchair and via private vehicle. Family member driving. --22:40 Julian Schaffer R.N. 22:40 10/31/2016 Site #1 removed upon discharge. Bandaid applied. --22:40 Julian Schaffer R.N. Locked/Released at 11/01/2016 2:29 by Víctor Ovalles R.N.
--- NOTE | 2016-10-31 22:23 | ED ORDER SUMMARY ---
..... Patient: SAMSON DÍAZ OrderSheet [facility] VisitID: [id number] [place] [address] 51y, F Registration Date/Time: 10/31/2016 ORDER SHEET Weight: 104.3 kg Allergies: Morphine and Related GENERAL ORDERS: EKG - ER Stat (19:10/31/2016 DBeyer R.N. per protocol) (19:06 TBergley) Chest 1V Urgent (19:10/31/2016 Edith ROBBINS) (Ack 19:29 CHagerty ER Lab Head) (20:29 CHagerty ER Lab Head) Cylinder Machine Operator Pulp Drier (Continuous) (:10/31/2016 Edith ROBBINS) (Ack 19:29 CHagerty ER Lab Head) (2:26 JQuivey R.N.) Cardiac Panel Stat (:10/31/2016 Edith ROBBINS) (Ack 19:29 CHagerty ER Lab Head) (2:28 JQuivey R.N.) BNP Urgent (19:10/31/2016 Edith ROBBINS) (Ack 19:29 CHagerty ER Lab Head) (2:28 JQuivey R.N.) D-Dimer Urgent (19:10/31/2016 Edith ROBBINS) (Ack 19:29 CHagerty ER Lab Head) (2:28 JQuivey R.N.) Oxygen (2 L/min) (NC) (19:10/31/2016 Edith ROBBINS) (Ack 19:29 CHagerty ER Lab Head) (2:28 JQuivey R.N.) Pulse oximeter (19:10/31/2016 Edith ROBBINS) (Ack 19:29 MobileSpan[facility] ER Lab Head) (2:27 JQuivey R.N.) EKG - ER Stat (:10/31/2016 Edith ROBBINS) (Cancelled: Duplicate Order19:29 CHagerty ER Lab Head) MEDICATION ORDERS: Aspirin PO 325 mg (NOW) (19:10/31/2016 Edith ROBBINS) (20:07 DBeyer R.N.) IV FLUIDS: IV Saline Lock (19:10/31/2016 Edith ROBBINS) (20:02 DBeyer R.N.) Dilaudid IV 1 mg (NOW) (19:19 10/31/2016 Edith ROBBINS) (20:07 DBeyer R.N.) Dilaudid IV 1 mg (HIGH ALERT MEDICATION, NOW) (22:19 10/31/2016 Edith ROBBINS) (22:39 DBeyer R.N.) ORDER SHEET NOTES: [Electronically signed by Víctor Ovalles R.N. (02:11/01/2016)] [Electronically signed by Joel Quiroz MD (15:01 11/02/2016)] [Electronically locked/signed by Víctor Ovalles R.N. (:11/01/2016)]
--- NOTE | 2016-11-02 15:01 | ED MAR SUMMARY ---
..... Medication Administration Record [facility] [address] [place] [address] Patient: SAMSON DÍAZ Visit ID: [id number] 51y, F Weight: 104.3 kg Height/Length: 62 in BMI: 42.1 ALLERGIES: Morphine and Related Given 20:10/31/2016 Julian Schaffer RAnatoliy Medication Administered: ASPIRIN [PO], Dose: 325 mg PO. Medication Ordered: Aspirin PO 325 mg (NOW). Given 20:10/31/2016 Julian Schaffer RRadamesN. Medication Administered: DILAUDID [IVP] (HYDROMORPHONE HCL PF), Dose: 1 mg IVP over 2 minute(s), Site: #1 right upper arm. Medication Ordered: Dilaudid IV 1 mg (NOW). Given 22:24 10/31/2016 Julian Schaffer RRadamesN. Medication Administered: DILAUDID [IVP] (HYDROMORPHONE HCL PF), Dose: 1 mg IVP over 2 minute(s), Site: #1 right upper arm. Medication Ordered: Dilaudid IV 1 mg (HIGH ALERT MEDICATION, NOW).
--- NOTE | 2016-11-02 15:01 | ED MED RECONCILIATION SUMMARY ---
Patient: SAMSON DÍAZ Medication Reconciliation Report [facility] VisitID: [id number] [address] [place] [address] 51y, F Registration Date/Time: 10/31/2016 Weight: 104.3 kg Height/Length: 62 in. BMI: 42.1 ALLERGIES: Morphine and Related The patient's Home Medications are listed below: THE FOLLOWING MEDICATIONS NEED TO BE RECONCILED: Lexapro Oral Lisinopril Oral MetFORMIN HCl Oral Prazosin HCl Oral SEROquel Oral Wellbutrin Oral The source(s) of the original Home Medication information: Not obtained. The following Medications were given to the patient in the Emergency Department: Dilaudid [IVP] IVP 1 mg, administered: 10/31/2016 8:07:00 PM Aspirin [PO] PO 325 mg, administered: 10/31/2016 8:07:00 PM Dilaudid [IVP] IVP 1 mg, administered: 10/31/2016 10:24:00 PM The following Medications were prescribed to the patient: Oxycodone/APAP 5 mg/325 mg: take 1 tablet orally every 4 hours as needed for pain. Dispense fifteen (15). No refill. -- Joel Quiroz MD
--- NOTE | 2016-11-02 15:01 | ED DISCHARGE INSTRUCTIONS ---
Patient: SAMSON DÍAZ General Instructions [facility] VisitID: [id number] [place] [address] 51y, F Registration Date/Time: 10/31/2016 Chest wall pain INSTRUCTIONS Do not work for two days. (IF YOU CAN TOLERATE IBUPROFEN 200 MG 4 TIMES A DAY FOR 5 DAYS. PAIN MEDICINE IMMEDIATE REHCECK IF WORSE). Prescription Medications: Oxycodone/APAP 5 mg/325 mg: take 1 tablet orally every 4 hours as needed for pain. Dispense fifteen (15). No refill. Follow-up: Follow up with your doctor in five days. Call for an appointment. Understanding of the discharge instructions verbalized by patient and family. ADDITIONAL INFORMATION Chest Wall Pain: Costochondritis The chest pain that you have had today is caused by Costochondritis. This condition is due to an inflammation of the cartilage joining the ribs to the breastbone. It is not caused by heart or lung problems. Although the exact cause for costochondritis is not known, it often occurs during times of emotional stress. It can be painful, but it is not dangerous. It usually disappears within one to two weeks, but may recur. Rarely, a more serious condition may cause symptoms similar to costochondritis; therefore, watch for the warning signs listed below. Home Care: If you feel that emotional stress is a cause of your condition, try to identify sources of that stress. It may not be obvious! Learn ways to deal with the stress in your life such as regular exercise, muscle relaxation, meditation, or simply taking time out for yourself. For more information about this, consult your doctor or go to a local bookstore and review books and tapes available on the subject of stress reduction. You may use acetaminophen (Tylenol) or ibuprofen (Motrin, Advil) to control pain, unless another pain medicine was prescribed. [ NOTE: If you have liver disease or ever had a stomach ulcer, talk with your doctor before using these medicines.] The use of heat (hot wet compress or heating pad) with or without local analgesic creams (Deep Heat Rub, Lavelle Burns) will be helpful to reduce pain. Follow Up with your doctor as directed or sooner if you do not start to improve within the next two days. Get Prompt Medical Attention if any of the following occur: A change in the type of pain: if it feels different, becomes more severe, lasts longer, or spreads into your shoulder, arm, neck, jaw or back Shortness of breath or increased pain with breathing Weakness, dizziness, or fainting Cough with dark colored sputum (phlegm) or blood Abdominal pain Dark red or black stools Fever of 100.4F (38C) or higher, or as directed by your healthcare provider Oxycodone Hydrochloride, Acetaminophen Oral tablet What is this medicine? ACETAMINOPHEN; OXYCODONE (a set a BETHANY shawn fen; ox i KOE done) is a pain reliever. It is used to treat mild to moderate pain. How should I use this medicine? Take this medicine by mouth with a full glass of water. Follow the directions on the prescription label. Take your medicine at regular intervals. Do not take your medicine more often than directed. Talk to your hotel service manager regarding the use of this medicine in children. Special care may be needed. Patients over 65 years old may have a stronger reaction and need a smaller dose. What side effects may I notice from receiving this medicine? Side effects that you should report to your doctor or health career and technology education teacher as soon as possible: allergic reactions like skin rash, itching or hives, swelling of the face, lips, or tongue breathing difficulties, wheezing confusion light headedness or fainting spells severe stomach pain yellowing of the skin or the whites of the eyes Side effects that usually do not require medical attention (report to your doctor or health career and technology education teacher if they continue or are bothersome): dizziness drowsiness nausea vomiting What may interact with this medicine? alcohol antihistamines barbiturates like amobarbital, butalbital, butabarbital, methohexital, pentobarbital, phenobarbital, thiopental, and secobarbital benztropine drugs for bladder problems like solifenacin, trospium, oxybutynin, tolterodine, hyoscyamine, and methscopolamine drugs for breathing problems like ipratropium and tiotropium drugs for certain stomach or intestine problems like propantheline, homatropine methylbromide, glycopyrrolate, atropine, belladonna, and dicyclomine general anesthetics like etomidate, ketamine, nitrous oxide, propofol, desflurane, enflurane, halothane, isoflurane, and sevoflurane medicines for depression, anxiety, or psychotic disturbances medicines for sleep muscle relaxants naltrexone narcotic medicines (opiates) for pain phenothiazines like perphenazine, thioridazine, chlorpromazine, mesoridazine, fluphenazine, prochlorperazine, promazine, and trifluoperazine scopolamine tramadol trihexyphenidyl What if I miss a dose? If you miss a dose, take it as soon as you can. If it is almost time for your next dose, take only that dose. Do not take double or extra doses. Where should I keep my medicine? Keep out of the reach of children. This medicine can be abused. Keep your medicine in a safe place to protect it from theft. Do not share this medicine with anyone. Selling or giving away this medicine is dangerous and against the law. Store at room temperature between 20 and 25 degrees C (68 and 77 degrees F). Keep container tightly closed. Protect from light. This medicine may cause accidental overdose and if it is taken by other adults, children, or pets. Flush any unused medicine down the toilet to reduce the chance of harm. Do not use the medicine after the expiration date. What should I tell my health care provider before I take this medicine? They need to know if you have any of these conditions: brain tumor Crohn's disease, inflammatory bowel disease, or ulcerative colitis drink more than 3 alcohol containing drinks per day drug abuse or addiction head injury heart or circulation problems kidney disease or problems going to the bathroom liver disease lung disease, asthma, or breathing problems an unusual or allergic reaction to acetaminophen, oxycodone, other opioid analgesics, other medicines, foods, dyes, or preservatives or trying to get breast-feeding What should I watch for while using this medicine? Tell your doctor or health career and technology education teacher if your pain does not go away, if it gets worse, or if you have new or a different type of pain. You may develop tolerance to the medicine. Tolerance means that you will need a higher dose of the medication for pain relief. Tolerance is normal and is expected if you take this medicine for a long time. Do not suddenly stop taking your medicine because you may develop a severe reaction. Your body becomes used to the medicine. This does NOT mean you are addicted. Addiction is a behavior related to getting and using a drug for a non-medical reason. If you have pain, you have a medical reason to take pain medicine. Your doctor will tell you how much medicine to take. If your doctor wants you to stop the medicine, the dose will be slowly lowered over time to avoid any side effects. You may get drowsy or dizzy. Do not drive, use machinery, or do anything that needs mental alertness until you know how this medicine affects you. Do not stand or sit up quickly, especially if you are an older patient. This reduces the risk of dizzy or fainting spells. Alcohol may interfere with the effect of this medicine. Avoid alcoholic drinks. There are different types of narcotic medicines (opiates) for pain. If you take more than one type at the same time, you may have more side effects. Give your health care provider a list of all medicines you use. Your doctor will tell you how much medicine to take. Do not take more medicine than directed. Call emergency for help if you have problems breathing. The medicine will cause constipation. Try to have a bowel movement at least every 2 to 3 days. If you do not have a bowel movement for 3 days, call your doctor or health career and technology education teacher. Do not take Tylenol (acetaminophen) or medicines that have acetaminophen with this medicine. Too much acetaminophen can be very dangerous. Many nonprescription medicines contain acetaminophen. Always read the labels carefully to avoid taking more acetaminophen. You have been given the following additional information: Chest Wall Pain, Costochondritis Oxycodone Hydrochloride, Acetaminophen Oral tablet Do not work for two days. (Electronically signed by Joel Quiroz MD 11/02/2016 15:01)
--- NOTE | 2016-11-02 15:01 | ED MAR SUMMARY ---
..... Medication Administration Record [facility] [address] [place] [address] Patient: SAMSON DÍAZ Visit ID: [id number] 51y, F Weight: 104.3 kg Height/Length: 62 in BMI: 42.1 ALLERGIES: Morphine and Related Given 20:10/31/2016 Julian Schaffer RAnatoliy Medication Administered: ASPIRIN [PO], Dose: 325 mg PO. Medication Ordered: Aspirin PO 325 mg (NOW). Given 20:10/31/2016 Julian Schaffer RRadamesN. Medication Administered: DILAUDID [IVP] (HYDROMORPHONE HCL PF), Dose: 1 mg IVP over 2 minute(s), Site: #1 right upper arm. Medication Ordered: Dilaudid IV 1 mg (NOW). Given 22:24 10/31/2016 Julian Schaffer RRadamesN. Medication Administered: DILAUDID [IVP] (HYDROMORPHONE HCL PF), Dose: 1 mg IVP over 2 minute(s), Site: #1 right upper arm. Medication Ordered: Dilaudid IV 1 mg (HIGH ALERT MEDICATION, NOW).
--- NOTE | 2016-11-02 15:01 | ED MED RECONCILIATION SUMMARY ---
Patient: SAMSON DÍAZ Medication Reconciliation Report [facility] VisitID: [id number] [address] [place] [address] 51y, F Registration Date/Time: 10/31/2016 Weight: 104.3 kg Height/Length: 62 in. BMI: 42.1 ALLERGIES: Morphine and Related The patient's Home Medications are listed below: THE FOLLOWING MEDICATIONS NEED TO BE RECONCILED: Lexapro Oral Lisinopril Oral MetFORMIN HCl Oral Prazosin HCl Oral SEROquel Oral Wellbutrin Oral The source(s) of the original Home Medication information: Not obtained. The following Medications were given to the patient in the Emergency Department: Dilaudid [IVP] IVP 1 mg, administered: 10/31/2016 8:07:00 PM Aspirin [PO] PO 325 mg, administered: 10/31/2016 8:07:00 PM Dilaudid [IVP] IVP 1 mg, administered: 10/31/2016 10:24:00 PM The following Medications were prescribed to the patient: Oxycodone/APAP 5 mg/325 mg: take 1 tablet orally every 4 hours as needed for pain. Dispense fifteen (15). No refill. -- Joel Quiroz MD
== END 2016-10-31 22:34 | disposition home or self-care (01) ==
LOC: ED SRH 18:47
DX: R07.89 Other chest pain (principal); Z87.891 Personal history of nicotine dependence; Z88.5 Allergy status to narcotic agent
CPT/HCPCS: 90100; 90616; 91320; 91556; 92610; 92720; 95059

== ENCOUNTER 2017-01-08 15:38 | Emergency (ER) | payer OTHER ==
--- NOTE | 2017-01-08 16:03 | ED NURSING NOTES ---
Clinical Report - Nurses [facility] [place] [address] 01/08/2017 15:42 Patient: SAMSON DÍAZ TRIAGE Triage time 15:49. Acuity: LEVEL 4. Chief Complaint: RIGHT LOWER EXTREMITY PAIN. LEFT LOWER EXTREMITY PAIN. Alert. No acute distress. --15:59 Moose Ruiz R.N. 15:49 01/08/17. BP: 167/92. HR: 98. RR: 16. O2 saturation: 100%. Temp: 97.1 F. Pain level now 03/08. --15:59 Moose Ruiz R.N. Weight: 103.8 kg stated. Height/Length: 63 inches Per Patient. BMI: 40.5. --15:58 Moose Ruiz R.N. Medications Lisinopril Oral. MetFORMIN HCl Oral. Prazosin HCl Oral. Wellbutrin Oral. --15:54 Moose Ruiz R.N. Gabapentin Enacarbil ER Oral. --15:54 Moose Ruiz R.N. Allergies Morphine and Related. --15:54 Moose Ruiz R.N. History Arrived by private vehicle. Historian: patient. Unaccompanied. An injury may have occurred. This occurred last night. ( Has blisters on the bottom of both feet. Pt removed skin from right foot blister. No sign of infection. Patient is diabetic.). SOCIAL HX: Smoker- current status unknown. --15:59 Moose Ruiz R.N. Interventions ID band on patient. To room. --15:59 Moose Ruiz R.N. PHYSICAL ASSESSMENT Ambulatory to room. GENERAL / NEURO / PSYCH: Alert. Appears in no acute distress. Appears in pain. SKIN: Skin not intact. --16:00 Moose Ruiz R.N. NURSING PROGRESS NOTES Call light placed in reach. Side rails up x 1. Bed placed in lowest position. --16:00 Moose Ruiz R.N. DISPOSITION / DISCHARGE Condition at departure: improved. ( bacitracin and bandaid to open area. Vital signs not repeated.). No learning barriers present. Discharge instructions provided and reviewed with the patient. Patient verbalized understanding. Written instructions provided in Bulgarian. The patient was discharged by the nurse practitioner. She was discharged home. --16:20 Moose Ruiz R.N. Locked/Released at 01/08/2017 16:22 by Moose Ruiz R.N.
--- NOTE | 2017-01-08 16:03 | ED CLINICAL REPORT ---
Clinical Report - Physicians/Mid Levels [facility] [address] [place] [address] 01/08/2017 15:42 Patient: SAMSON DÍAZ Time Seen: 1552; upon arrival, initial patient contact, initial documentation, patient care assumed. Arrived- By private vehicle. Historian- patient. HISTORY OF PRESENT ILLNESS Chief Complaint: TENDER AREA and (blister). This started last night and is still present. It was abrupt in onset. Not itchy or burning. It is described as painful. It has been located on the right sole and left sole. No cause has been identified. (has blister to bottom of feet, wore dress shoes prior, removed top of blister on R foot last night and put bactine on it). Similar symptoms previously: None. Recent medical care: Not recently seen/assessed. REVIEW OF SYSTEMS All systems otherwise negative, except as recorded above. PAST HISTORY See nurses notes. PROBLEMS: Chest Wall Pain. Costochondritis. Sprain. Bronchitis. Otitis Media. Immunizations. "heart burn". Anxiety disorder. Depression. --19:00 Julian Schaffer R.N. ADDITIONAL SURGERIES: Hysterectomy. Tubal Ligation. --19:01 Julian Schaffer R.N. SOCIAL HISTORY Former smoker. Occasional alcohol use. No drug use. No recent travel. Is a local resident. FAMILY HISTORY Negative. ADDITIONAL NOTES The nursing notes have been reviewed with agreement regarding the chief complaint, HPI, ROS, PMH and patient medications and allergies. PHYSICAL EXAM Vital Signs: 01/08/2017 15:49 BP: 167/92. HR: 98. RR: 16. O2 saturation: 100%. Temp: 97.1 F. Have been reviewed as normal and appear to be correct. Appearance: Alert. Oriented X3. No acute distress. Eyes: Pupils equal, round and reactive to light. Conjunctivae and eyelids normal. Neck: Neck supple. Respiratory: No respiratory distress. Skin: Skin warm and dry. Normal skin color. No rash. Normal skin turgor. (blister to bottom of each foot, sole near base of toes 2&3, R foot top of blister gone, L foot blister intact, no fluctulance, no s/s of infection, no dc, no swelling, no erythema, mild tenderness). Extremities: Normal external inspection. Extremities nontender. Neuro: Oriented X 3. No motor deficit. No sensory deficit. PROGRESS AND PROCEDURES Course of Care: 16:05 01/08/17. pt has narciso for some narcs and #7 er visits, see report for full details. Patient counseled in person regarding the patient's stable condition and diagnosis. Differential Diagnosis: Other possible considerations: blister, abscess, mrsa, cellulitis, dm foot ulcer. Above considerations are based on history and physical exam. Differential diagnosis was discussed with patient. Disposition: Discharged home in good and improved condition (16:03). Condition: good and stable. CLINICAL IMPRESSION (B Foot Blisters - Soles). INSTRUCTIONS Protect wound and keep wound area clean. Soak in warm soapy water twice daily. Apply bacitracin twice daily. Warnings: GENERAL WARNINGS: Return or contact your physician immediately if your condition worsens or changes unexpectedly, if not improving as expected, or if other problems arise. Specifically return if problem worsens. Prescription Medications: Bactrim DS 800 mg / 160 mg: Take 1 tablet orally every 12 hours for 7 days. Dispense fourteen (14). No refills. Substitution is permissible. Bactroban 2% ointment: apply small amount to affected area three times daily for 5 days. Dispense twenty-two (22) grams. No refills. Substitution is permissible. Follow-up: Follow up with your doctor in about three days as needed and for wound check. Call for an appointment. Summary of care provided to patient. Understanding of the discharge instructions verbalized by patient. (Electronically signed by Barb Wallace A.R.N.P. 01/08/2017 18:56)
--- NOTE | 2017-01-08 16:03 | ED NURSING NOTES ---
Clinical Report - [facility] [place] [address] [place] [address] 01/08/2017 15:42 Patient: SAMSON DÍAZ TRIAGE Triage time 15:49. Acuity: LEVEL 4. Chief Complaint: RIGHT LOWER EXTREMITY PAIN. LEFT LOWER EXTREMITY PAIN. Alert. No acute distress. --15:59 Moose Ruiz R.N. 15:49 01/08/17. BP: 167/92. HR: 98. RR: 16. O2 saturation: 100%. Temp: 97.1 F. Pain level now 03/08. --15:59 Moose Ruiz R.N. Weight: 103.8 kg stated. Height/Length: 63 inches Per Patient. BMI: 40.5. --15:58 Moose Ruiz R.N. Medications Lisinopril Oral. MetFORMIN HCl Oral. Prazosin HCl Oral. Wellbutrin Oral. --15:54 Moose Ruiz R.N. Gabapentin Enacarbil ER Oral. --15:54 Moose Ruiz R.N. Allergies Morphine and Related. --15:54 Moose Ruiz R.N. History Arrived by private vehicle. Historian: patient. Unaccompanied. An injury may have occurred. This occurred last night. ( Has blisters on the bottom of both feet. Pt removed skin from right foot blister. No sign of infection. Patient is diabetic.). SOCIAL HX: Smoker- current status unknown. --15:59 Moose Ruiz R.N. Interventions ID band on patient. To room. --15:59 Moose Ruiz R.N. PHYSICAL ASSESSMENT Ambulatory to room. GENERAL / NEURO / PSYCH: Alert. Appears in no acute distress. Appears in pain. SKIN: Skin not intact. --16:00 Moose Ruiz R.N. NURSING PROGRESS NOTES Call light placed in reach. Side rails up x 1. Bed placed in lowest position. --16:00 Moose Ruiz R.N. DISPOSITION / DISCHARGE Condition at departure: improved. ( bacitracin and bandaid to open area. Vital signs not repeated.). No learning barriers present. Discharge instructions provided and reviewed with the patient. Patient verbalized understanding. Written instructions provided in Marshallese. The patient was discharged by the nurse practitioner. She was discharged home. --16:20 Moose Ruiz R.N. Locked/Released at 01/08/2017 16:22 by Moose Ruiz R.N.
--- NOTE | 2017-01-08 18:56 | ED MAR SUMMARY ---
..... Medication Administration Record [facility] [address] [place], [place] [id number] Patient: SAMSON DÍAZ Visit ID: [id number] 51y, F Weight: 103.8 kg Height/Length: 63 in BMI: 40.5 ALLERGIES: Morphine and Related
--- NOTE | 2017-01-08 18:56 | ED MED RECONCILIATION SUMMARY ---
Patient: SAMSON DÍAZ Medication Reconciliation Report [facility] VisitID: [id number] [address] [place] [address] 51y, F Registration Date/Time: 01/08/2017 Weight: 103.8 kg Height/Length: 63 in. BMI: 40.5 ALLERGIES: Morphine and Related The patient's Home Medications are listed below: THE FOLLOWING MEDICATIONS NEED TO BE RECONCILED: Gabapentin Enacarbil ER Oral Lisinopril Oral MetFORMIN HCl Oral Prazosin HCl Oral Wellbutrin Oral The source(s) of the original Home Medication information: Not obtained. The following Medications were given to the patient in the Emergency Department: None. The following Medications were prescribed to the patient: Bactrim DS 800 mg / 160 mg: Take 1 tablet orally every 12 hours for 7 days. Dispense fourteen (14). No refills. Substitution is permissible. -- Barb Wallace A.R.N.P. Bactroban 2% ointment: apply small amount to affected area three times daily for 5 days. Dispense twenty-two (22) grams. No refills. Substitution is permissible. -- Barb Wallace A.R.N.P.
--- NOTE | 2017-01-08 18:56 | ED MED RECONCILIATION SUMMARY ---
Patient: SAMSON DÍAZ Medication Reconciliation Report [facility] VisitID: [id number] [address] [place] [address] 51y, F Registration Date/Time: 01/08/2017 Weight: 103.8 kg Height/Length: 63 in. BMI: 40.5 ALLERGIES: Morphine and Related The patient's Home Medications are listed below: THE FOLLOWING MEDICATIONS NEED TO BE RECONCILED: Gabapentin Enacarbil ER Oral Lisinopril Oral MetFORMIN HCl Oral Prazosin HCl Oral Wellbutrin Oral The source(s) of the original Home Medication information: Not obtained. The following Medications were given to the patient in the Emergency Department: None. The following Medications were prescribed to the patient: Bactrim DS 800 mg / 160 mg: Take 1 tablet orally every 12 hours for 7 days. Dispense fourteen (14). No refills. Substitution is permissible. -- Barb Wallace A.R.N.P. Bactroban 2% ointment: apply small amount to affected area three times daily for 5 days. Dispense twenty-two (22) grams. No refills. Substitution is permissible. -- Barb Wallace A.R.N.P.
--- NOTE | 2017-01-08 18:56 | ED DISCHARGE INSTRUCTIONS ---
Patient: SAMSON DÍAZ General Instructions [facility] VisitID: [id number] [place] [address] 51y, F Registration Date/Time: 01/08/2017 (B Foot Blisters - Soles). INSTRUCTIONS Protect wound and keep wound area clean. Soak in warm soapy water twice daily. Apply bacitracin twice daily. Warnings: GENERAL WARNINGS: Return or contact your physician immediately if your condition worsens or changes unexpectedly, if not improving as expected, or if other problems arise. Specifically return if problem worsens. Prescription Medications: Bactrim DS 800 mg / 160 mg: Take 1 tablet orally every 12 hours for 7 days. Dispense fourteen (14). No refills. Substitution is permissible. Bactroban 2% ointment: apply small amount to affected area three times daily for 5 days. Dispense twenty-two (22) grams. No refills. Substitution is permissible. Follow-up: Follow up with your doctor in about three days as needed and for wound check. Call for an appointment. Summary of care provided to patient. Understanding of the discharge instructions verbalized by patient. ADDITIONAL INFORMATION Sulfamethoxazole, Trimethoprim Oral tablet What is this medicine? SULFAMETHOXAZOLE; TRIMETHOPRIM or SMX-TMP (suhl fuh meth OK lynn zohl; trye METH oh prim) is a combination of a sulfonamide antibiotic and a second antibiotic, trimethoprim. It is used to treat or prevent certain kinds of bacterial infections. It will not work for colds, flu, or other viral infections. How should I use this medicine? Take this medicine by mouth with a full glass of water. Follow the directions on the prescription label. Take your medicine at regular intervals. Do not take it more often than directed. Do not skip doses or stop your medicine early. Talk to your manager market research regarding the use of this medicine in children. Special care may be needed. This medicine has been used in children as young as 2 months of age. What side effects may I notice from receiving this medicine? Side effects that you should report to your doctor or health career services coordinator as soon as possible: allergic reactions like skin rash or hives, swelling of the face, lips, or tongue breathing problems fever or chills, sore throat irregular heartbeat, chest pain joint or muscle pain pain or difficulty passing urine red pinpoint spots on skin redness, blistering, peeling or loosening of the skin, including inside the mouth unusual bleeding or bruising unusually weak or tired yellowing of the eyes or skin Side effects that usually do not require medical attention (report to your doctor or health career services coordinator if they continue or are bothersome): diarrhea dizziness headache loss of appetite nausea, vomiting nervousness What may interact with this medicine? Do not take this medicine with any of the following medications: aminobenzoate potassium dofetilide metronidazole This medicine may also interact with the following medications: AUBREE inhibitors like benazepril, enalapril, lisinopril, and ramipril cyclosporine digoxin diuretics indomethacin medicines for diabetes methenamine methotrexate phenytoin potassium supplements pyrimethamine sulfinpyrazone tricyclic antidepressants warfarin What if I miss a dose? If you miss a dose, take it as soon as you can. If it is almost time for your next dose, take only that dose. Do not take double or extra doses. Where should I keep my medicine? Keep out of the reach of children. Store at room temperature between 20 to 25 degrees C (68 to 77 degrees F). Protect from light. Throw away any unused medicine after the expiration date. What should I tell my health care provider before I take this medicine? They need to know if you have any of these conditions: anemia asthma being treated with anticonvulsants if you frequently drink alcohol containing drinks kidney disease liver disease low level of folic acid or ofbqhwu-[id number]-rvfqugtsk dehydrogenase poor nutrition or malabsorption porphyria severe allergies thyroid disorder an unusual or allergic reaction to sulfamethoxazole, trimethoprim, sulfa drugs, other medicines, foods, dyes, or preservatives or trying to get breast-feeding What should I watch for while using this medicine? Tell your doctor or health career services coordinator if your symptoms do not improve. Drink several glasses of water a day to reduce the risk of kidney problems. Do not treat diarrhea with over the counter products. Contact your doctor if you have diarrhea that lasts more than 2 days or if it is severe and watery. This medicine can make you more sensitive to the sun. Keep out of the sun. If you cannot avoid being in the sun, wear protective clothing and use a sunscreen. Do not use sun lamps or tanning beds/booths. Mupirocin Topical ointment What is this medicine? MUPIROCIN (myoo PEER oh sin) is an antibiotic. It is used on the skin to treat skin infections. How should I use this medicine? This medicine is for external use only. Follow the directions on the prescription label. Wash your hands before and after use. Before applying, wash the affected area with mild soap and water and pat dry. Apply a small amount to the affected area and rub gently. You can cover the area with a gauze dressing. Do not get this medicine in your eyes. If you do, rinse out with plenty of cool tap water. Do not use your medicine more often than directed. Finish the full course of medicine prescribed by your doctor or health career services coordinator even if you think your condition is better. Do not use over large areas of burnt skin. Talk to your manager market research regarding the use of this medicine in children. Special care may be needed. What side effects may I notice from receiving this medicine? Side effects that you should report to your doctor or health career services coordinator as soon as possible: skin rash, redness, continued swelling, burning, itching, stinging, or pain Side effects that usually do not require medical attention (report to your doctor or health career services coordinator if they continue or are bothersome): dry skin, itching What may interact with this medicine? Interactions are not expected. Do not use any other skin products on the affected area without telling your doctor or health career services coordinator. What if I miss a dose? If you miss a dose, take it as soon as you can. If it is almost time for your next dose, take only that dose. Do not take double or extra doses. Where should I keep my medicine? Keep out of the reach of children. Store at room temperature between 20 and 25 degrees C (68 and 77 degrees F). Throw away any unused medicine after the expiration date. What should I tell my health care provider before I take this medicine? They need to know if you have any of these conditions: an unusual or allergic reaction to mupirocin, polyethylene glycol (PEG), or other topical antibiotic medicine or trying to get breast-feeding What should I watch for while using this medicine? Tell your doctor or health career services coordinator if your skin condition does not begin to improve within 3 to 5 days. You have been given the following additional information: Sulfamethoxazole, Trimethoprim Oral tablet Mupirocin Topical ointment (Electronically signed by Barb Wallace A.R.N.P. 01/08/2017 18:56)
--- NOTE | 2017-01-08 18:56 | ED DISCHARGE INSTRUCTIONS ---
Patient: SAMSON DÍAZ General Instructions [facility] VisitID: [id number] [place] [address] 51y, F Registration Date/Time: 01/08/2017 (B Foot Blisters - Soles). INSTRUCTIONS Protect wound and keep wound area clean. Soak in warm soapy water twice daily. Apply bacitracin twice daily. Warnings: GENERAL WARNINGS: Return or contact your physician immediately if your condition worsens or changes unexpectedly, if not improving as expected, or if other problems arise. Specifically return if problem worsens. Prescription Medications: Bactrim DS 800 mg / 160 mg: Take 1 tablet orally every 12 hours for 7 days. Dispense fourteen (14). No refills. Substitution is permissible. Bactroban 2% ointment: apply small amount to affected area three times daily for 5 days. Dispense twenty-two (22) grams. No refills. Substitution is permissible. Follow-up: Follow up with your doctor in about three days as needed and for wound check. Call for an appointment. Summary of care provided to patient. Understanding of the discharge instructions verbalized by patient. ADDITIONAL INFORMATION Sulfamethoxazole, Trimethoprim Oral tablet What is this medicine? SULFAMETHOXAZOLE; TRIMETHOPRIM or SMX-TMP (suhl fuh meth OK lynn zohl; trye METH oh prim) is a combination of a sulfonamide antibiotic and a second antibiotic, trimethoprim. It is used to treat or prevent certain kinds of bacterial infections. It will not work for colds, flu, or other viral infections. How should I use this medicine? Take this medicine by mouth with a full glass of water. Follow the directions on the prescription label. Take your medicine at regular intervals. Do not take it more often than directed. Do not skip doses or stop your medicine early. Talk to your historic site administrator regarding the use of this medicine in children. Special care may be needed. This medicine has been used in children as young as 2 months of age. What side effects may I notice from receiving this medicine? Side effects that you should report to your doctor or health urgent care technician as soon as possible: allergic reactions like skin rash or hives, swelling of the face, lips, or tongue breathing problems fever or chills, sore throat irregular heartbeat, chest pain joint or muscle pain pain or difficulty passing urine red pinpoint spots on skin redness, blistering, peeling or loosening of the skin, including inside the mouth unusual bleeding or bruising unusually weak or tired yellowing of the eyes or skin Side effects that usually do not require medical attention (report to your doctor or health urgent care technician if they continue or are bothersome): diarrhea dizziness headache loss of appetite nausea, vomiting nervousness What may interact with this medicine? Do not take this medicine with any of the following medications: aminobenzoate potassium dofetilide metronidazole This medicine may also interact with the following medications: AUBREE inhibitors like benazepril, enalapril, lisinopril, and ramipril cyclosporine digoxin diuretics indomethacin medicines for diabetes methenamine methotrexate phenytoin potassium supplements pyrimethamine sulfinpyrazone tricyclic antidepressants warfarin What if I miss a dose? If you miss a dose, take it as soon as you can. If it is almost time for your next dose, take only that dose. Do not take double or extra doses. Where should I keep my medicine? Keep out of the reach of children. Store at room temperature between 20 to 25 degrees C (68 to 77 degrees F). Protect from light. Throw away any unused medicine after the expiration date. What should I tell my health care provider before I take this medicine? They need to know if you have any of these conditions: anemia asthma being treated with anticonvulsants if you frequently drink alcohol containing drinks kidney disease liver disease low level of folic acid or mrfftcw-3-[id number] dehydrogenase poor nutrition or malabsorption porphyria severe allergies thyroid disorder an unusual or allergic reaction to sulfamethoxazole, trimethoprim, sulfa drugs, other medicines, foods, dyes, or preservatives or trying to get breast-feeding What should I watch for while using this medicine? Tell your doctor or health urgent care technician if your symptoms do not improve. Drink several glasses of water a day to reduce the risk of kidney problems. Do not treat diarrhea with over the counter products. Contact your doctor if you have diarrhea that lasts more than 2 days or if it is severe and watery. This medicine can make you more sensitive to the sun. Keep out of the sun. If you cannot avoid being in the sun, wear protective clothing and use a sunscreen. Do not use sun lamps or tanning beds/booths. Mupirocin Topical ointment What is this medicine? MUPIROCIN (myoo PEER oh sin) is an antibiotic. It is used on the skin to treat skin infections. How should I use this medicine? This medicine is for external use only. Follow the directions on the prescription label. Wash your hands before and after use. Before applying, wash the affected area with mild soap and water and pat dry. Apply a small amount to the affected area and rub gently. You can cover the area with a gauze dressing. Do not get this medicine in your eyes. If you do, rinse out with plenty of cool tap water. Do not use your medicine more often than directed. Finish the full course of medicine prescribed by your doctor or health urgent care technician even if you think your condition is better. Do not use over large areas of burnt skin. Talk to your historic site administrator regarding the use of this medicine in children. Special care may be needed. What side effects may I notice from receiving this medicine? Side effects that you should report to your doctor or health urgent care technician as soon as possible: skin rash, redness, continued swelling, burning, itching, stinging, or pain Side effects that usually do not require medical attention (report to your doctor or health urgent care technician if they continue or are bothersome): dry skin, itching What may interact with this medicine? Interactions are not expected. Do not use any other skin products on the affected area without telling your doctor or health urgent care technician. What if I miss a dose? If you miss a dose, take it as soon as you can. If it is almost time for your next dose, take only that dose. Do not take double or extra doses. Where should I keep my medicine? Keep out of the reach of children. Store at room temperature between 20 and 25 degrees C (68 and 77 degrees F). Throw away any unused medicine after the expiration date. What should I tell my health care provider before I take this medicine? They need to know if you have any of these conditions: an unusual or allergic reaction to mupirocin, polyethylene glycol (PEG), or other topical antibiotic medicine or trying to get breast-feeding What should I watch for while using this medicine? Tell your doctor or health urgent care technician if your skin condition does not begin to improve within 3 to 5 days. You have been given the following additional information: Sulfamethoxazole, Trimethoprim Oral tablet Mupirocin Topical ointment (Electronically signed by Barb Wallace A.R.N.P. 01/08/2017 18:56)
--- NOTE | 2017-01-08 18:56 | ED ORDER SUMMARY ---
..... Patient: SAMSON DÍAZ OrderSheet [facility] VisitID: [id number] [address] [place] [address] 51y, F Registration Date/Time: 01/08/2017 ORDER SHEET Weight: 103.8 kg (stated) Allergies: Morphine and Related GENERAL ORDERS: Dress Wounds (16:03 01/08/2017 ASHLEYivenraffaele A.R.N.P.) ([facility] 16:14 Sena Tech1) (16:20 Rick R.N.) MEDICATION ORDERS: IV FLUIDS: ORDER SHEET NOTES: [Electronically signed by Moose Ruiz R.N. (16:22 01/08/2017)] [Electronically signed by Barb WallaceR.N.P. (18:56 01/08/2017)] [Electronically locked/signed by Moose Ruiz R.N. (16:22 01/08/2017)]
--- NOTE | 2017-01-08 18:56 | ED MAR SUMMARY ---
..... Medication Administration Record [facility] [address], [place] [id number] Patient: SAMSON DÍAZ Visit ID: [id number] 51y, F Weight: 103.8 kg Height/Length: 63 in BMI: 40.5 ALLERGIES: Morphine and Related
--- NOTE | 2017-01-08 18:56 | ED ORDER SUMMARY ---
..... Patient: SAMSON DÍAZ OrderSheet [facility] VisitID: [id number] [address] [place] [address] 51y, F Registration Date/Time: 01/08/2017 ORDER SHEET Weight: 103.8 kg (stated) Allergies: Morphine and Related GENERAL ORDERS: Dress Wounds (16:03 01/08/2017 ASHLEYivenraffaele A.R.N.P.) ([facility] 16:14 [employer]) (16:20 Rick R.N.) MEDICATION ORDERS: IV FLUIDS: ORDER SHEET NOTES: [Electronically signed by Moose Ruiz R.N. (16:22 01/08/2017)] [Electronically signed by Barb WallaceR.N.P. (18:56 01/08/2017)] [Electronically locked/signed by Moose Ruiz R.N. (16:22 01/08/2017)]
== END 2017-01-08 16:20 | disposition home or self-care (01) ==
LOC: ED SRH 15:38
DX: S90.821A Blister (nonthermal), right foot, initial encounter (principal); Z79.899 Other long term (current) drug therapy; S90.822A Blister (nonthermal), left foot, initial encounter; X58.XXXA Exposure to other specified factors, initial encounter; Y93.9 Activity, unspecified; Y99.9 Unspecified external cause status; Y92.9 Unspecified place or not applicable; Z87.891 Personal history of nicotine dependence; Z90.710 Acquired absence of both cervix and uterus; Z79.84 Long term (current) use of oral hypoglycemic drugs